=== PATIENT | male | born 2000 | race Caucasian/White ===

== ENCOUNTER 2024-12-17 06:30 | Emergency (ER) | payer OTHER ==
[~2024-12-17] VITALS: Ht 185.4 cm; Wt 67.3 kg
[2024-12-17 07:25] LABS: BASO % 0.1 % (0.0-1.0); EOS % 0.2 % (0.0-3.0); HEMATOCRIT 43.5 % (42.0-52.0); HEMOGLOBIN 15.4 g/dl (13.5-17.5); LYMPH % 5.4 % (24.0-44.0); MEAN CORPUSCULAR HEMOGLOBIN 30.1 pg (27.0-33.0); MEAN CORPUSCULAR HGB CONC 35.4 g/dl (32.0-36.5); MONO # 0.9 10^3/uL (0.0-0.8); MONO % 4.9 % (2.0-8.0); NEUTROPHILS # 16.4 10^3/uL (1.5-8.5); PLATELET COUNT, AUTOMATED 223 10^3/uL (150-450); RED BLOOD COUNT 5.12 10^6/uL (4.30-6.10); WHITE BLOOD COUNT 18.4 10^3/uL (4.0-10.0)
[2024-12-17 07:53] LABS: LIPASE 29 U/L (12-53)
[2024-12-17 07:55] LABS: ALBUMIN 4.2 G/DL (3.2-5.2); ALKALINE PHOSPHATASE 75 U/L (40-129); ALT/SGPT 23 U/L (7.0-40); AST/SGOT 17 U/L (<34); BILIRUBIN,DIRECT 0.3 MG/DL (<0.4); BILIRUBIN,TOTAL 0.8 MG/DL (0.3-1.2); BLOOD UREA NITROGEN 18 MG/DL (9-23); CALCIUM LEVEL 9.7 MG/DL (8.5-10.1); CARBON DIOXIDE LEVEL 22 MMOL/L (20-31); CHLORIDE LEVEL 107 MMOL/L (98-107); CREATININE FOR GFR 0.74 MG/DL (0.70-1.30); GLOMERULAR FILTRATION RATE > 60.0 (>60); GLUCOSE, FASTING 140 MG/DL (60-100); POTASSIUM SERUM 3.9 MMOL/L (3.5-5.1); SODIUM LEVEL 141 MMOL/L (136-145); TOTAL PROTEIN 7.2 G/DL (5.7-8.2)
[2024-12-17] MEDS: ONDANSETRON 4MG 2ML VIAL IV ONE (11:27)
[2024-12-17] MEDS: KETOROLAC 30 MG/ML 1ML VIAL IV ONE (11:27)
[2024-12-17] MEDS: PANTOPRAZOLE 40MG VIAL IV ONE (11:27)
[2024-12-17] MEDS ORDERED: PROT1TAB2 PO (12:45)
[2024-12-17] MEDS ORDERED: ONDA-282 PO (12:45)
[2024-12-17 13:19] VITALS: BP 114/58; TEMP 97; O2SAT 100
== END 2024-12-17 13:20 | disposition home or self-care (01) ==
LOC: M ED 06:30
DX: R10.12 Left upper quadrant pain (principal); R11.2 Nausea with vomiting, unspecified; R19.7 Diarrhea, unspecified; F12.10 Cannabis abuse, uncomplicated; Z79.899 Other long term (current) drug therapy
CPT/HCPCS: 80048; 80076; 83690; 85025; 96374; 99284; J1885; J2405; J2470